=== PATIENT | male | born 1975 | race Caucasian/White ===

== ENCOUNTER 2021-03-07 14:10 | Emergency (ER) | payer OTHER ==
[~2021-03-07 14:10] MED LIST: KEFLEX CAP 500500 MG PO; PERCOCET 5-3251 EACH PO
== END 2021-03-07 18:55 | disposition left against medical advice (07) ==
LOC: ER1 14:10 → CDU 18:06 → ER1 18:55
DX: I63.511 Cerebral infarction due to unspecified occlusion or stenosis of right middle cerebral artery (principal); Z20.822 Contact with and (suspected) exposure to COVID-19
CPT/HCPCS: 70450; 99284; Q9967; U0002

== ENCOUNTER 2022-06-27 16:04 | Emergency (ER) | payer OTHER ==
[~2022-06-27] VITALS: Ht 152.4 cm; Wt 88.5 kg
[2022-06-27 16:34] LABS: HEMOGLOBIN 17.1 gm/dl (14.0-17.5); RED BLOOD COUNT 5.36 M/UL (4.20-5.50); WHITE BLOOD COUNT 9.2 K/UL (4.5-11.0)
[2022-06-27 16:56] LABS: BUN/CREATININE RATIO 11 (0-10)
== END 2022-06-28 11:03 | disposition short-term general hospital (02) ==
LOC: ER1 16:04
PROVIDERS: Emergency Medicine
DX: G45.9 Transient cerebral ischemic attack, unspecified (principal)
CPT/HCPCS: 70200; 70450; 70496; 70498; 80053; 82550; 82553; 84484; 85025; 85610; 85730; 93005; 96374; 99285; J1644; Q9967